=== PATIENT | male | born 1960 | race Caucasian/White ===

== ENCOUNTER 2019-09-26 02:24 | Emergency (ER) | payer MEDICAID, MEDICARE, OTHER ==
[~2019-09-26 02:24] MED LIST: ASPI81TA44 PO; ATEN50TA PO; LISI-603 PO
--- NOTE | 2019-09-26 02:59 | NUR ---
Patient left without being triage or seen by ERMD.
== END 2019-09-26 03:00 | disposition left against medical advice (07) ==
LOC: ER 02:31
DX: Z75.3 Unavailability and inaccessibility of health-care facilities (principal)

== ENCOUNTER 2020-09-25 01:40 | Emergency (ER) | payer MEDICARE, OTHER ==
[~2020-09-25] VITALS: Ht 185.4 cm; Wt 147.4 kg
[~2020-09-25 01:40] MED LIST changes: -LISI-603 PO; +LISI20TA30 PO
--- NOTE | 2020-09-25 01:56 | NUR ---
Dr. Dexter at bedside to do MSE.
[2020-09-25] MEDS ORDERED: HYDR-3980 PO (02:00)
[2020-09-25] MEDS ORDERED: SULF1TAB48 PO (02:00)
[2020-09-25] MEDS ORDERED: HYDROCODONE/APAP 10-325 MG TABLET PO ONE (02:15)
[2020-09-25] MEDS ORDERED: SULFAMETH/TRIMETH 800/160 MG TABLET PO ONE (02:15)
[2020-09-25] MEDS ORDERED: SULFAMETH/TRIMETH 800/160 MG TABLET ONE (02:16)
[2020-09-25] MEDS ORDERED: HYDROCODONE/APAP 10-325 MG TABLET ONE (02:16)
--- NOTE | 2020-09-25 02:39 | NUR ---
Pt. provided crutches and left cast shoe. Crutch and shoe cast instructions provided and pt. ambulates with steady gait.
--- NOTE | 2020-09-25 02:39 | NUR ---
Patient discharged to home in stable condition. Written and verbal after care instructions given. Patient verbalizes understanding of instructions. Stressed follow up or return to ER for worsening s/s. Training on how to use crutches and shoe cast provided. Pt. walks with steady gait. Pt. verbalizes understanding not to drive home. Vss and all belongings taken w/ pt.
[2020-09-25 04:19] VITALS: BP 121/59
== END 2020-09-25 02:39 | disposition home or self-care (01) ==
LOC: ER 01:42
DX: L03.032 Cellulitis of left toe (principal); G89.4 Chronic pain syndrome; M54.5 Low back pain; M79.675 Pain in left toe(s)
CPT/HCPCS: A4663

== ENCOUNTER 2021-01-22 00:49 | Emergency (ER) | payer MEDICARE, OTHER ==
[~2021-01-22] VITALS: Ht 185.4 cm; Wt 147.4 kg
[~2021-01-22 00:49] MED LIST changes: +HYDR-3980 PO; +SULF1TAB48 PO
--- NOTE | 2021-01-22 00:50 | NUR ---
Dr. Dexter at bedside for MSE
[2021-01-22] MEDS ORDERED: KETOROLAC TROMETHAMINE 30 MG INJ IM ONE (01:00)
[2021-01-22] MEDS ORDERED: HYDROCODONE/APAP 10-325 MG TABLET PO ONE (01:00)
[2021-01-22] MEDS ORDERED: HYDR-3980 PO ×2 (01:02→03:08)
[2021-01-22] MEDS ORDERED: KETOROLAC TROMETHAMINE 30 MG INJ ONE (01:12)
[2021-01-22] MEDS ORDERED: HYDROCODONE/APAP 10-325 MG TABLET ONE (01:12)
[2021-01-22] MEDS ORDERED: PENICILLIN G BENZATHINE 2.4 MMU/4 ML DISP.SYRIN IM ONE ×2 (01:30→01:39)
--- NOTE | 2021-01-22 01:49 | NUR ---
Patient discharged to home in stable condition. Written and verbal after care instructions given. Patient verbalizes understanding of instructions. Patient ambulating with steady gait. NAD noted. Stressed follow up or return to ER for worsening s/s.
[2021-01-22 01:52] VITALS: BP 132/80
== END 2021-01-22 02:00 | disposition home or self-care (01) ==
LOC: ER 00:57
DX: G89.29 Other chronic pain (principal); M54.9 Dorsalgia, unspecified; K02.9 Dental caries, unspecified; K05.10 Chronic gingivitis, plaque induced; Z20.822 Contact with and (suspected) exposure to COVID-19; Z79.82 Long term (current) use of aspirin; E66.01 Morbid (severe) obesity due to excess calories; Z68.41 Body mass index [BMI] 40.0-44.9, adult; M19.90 Unspecified osteoarthritis, unspecified site; J45.909 Unspecified asthma, uncomplicated; Z79.899 Other long term (current) drug therapy; F17.200 Nicotine dependence, unspecified, uncomplicated; R03.0 Elevated blood-pressure reading, without diagnosis of hypertension
CPT/HCPCS: 87426; 96372 ×2; 99284; J1885; A4663

== ENCOUNTER 2021-02-16 21:02 | Emergency (ER) | payer MEDICARE, OTHER ==
[~2021-02-16] VITALS: Ht 185.4 cm; Wt 83.9 kg
--- NOTE | 2021-02-16 21:13 | NUR ---
Dr. Dexter at bedside for MSE.
[2021-02-16] MEDS ORDERED: HYDROMORPHONE HCL 2 MG TABLET PO ONE (21:15)
[2021-02-16] MEDS ORDERED: KETOROLAC TROMETHAMINE 30 MG INJ IM ONE (21:15)
[2021-02-16] MEDS ORDERED: ONDANSETRON ODT 4 MG TAB.RAPDIS SL ONE (21:15)
[2021-02-16] MEDS ORDERED: KETOROLAC TROMETHAMINE 30 MG INJ ONE (21:27)
[2021-02-16] MEDS ORDERED: ONDANSETRON ODT 4 MG TAB.RAPDIS ONE (21:27)
[2021-02-16] MEDS ORDERED: HYDROMORPHONE HCL 2 MG TABLET ONE (21:27)
[2021-02-16] MEDS ORDERED: ONDA4TAB5 PO (21:59)
[2021-02-16] MEDS ORDERED: HYDR-3980 PO (21:59)
[2021-02-16] MEDS ORDERED: CYCL10TA9 PO (21:59)
--- NOTE | 2021-02-16 22:10 | NUR ---
Patient discharged to home in stable condition. Written and verbal after care instructions given. Patient verbalizes understanding of instructions. Stressed follow up or return to ER for worsening s/s. Patient out of ER with steady gait, no acute signs of distress, VSS, all belongings taken, provided with copies of lab results, instructed not to drive, will uber home.
[2021-02-16 22:11] VITALS: BP 150/75
== END 2021-02-16 22:11 | disposition home or self-care (01) ==
LOC: ER 21:06
DX: G89.4 Chronic pain syndrome (principal); M54.9 Dorsalgia, unspecified; J02.9 Acute pharyngitis, unspecified; Z20.822 Contact with and (suspected) exposure to COVID-19; K02.9 Dental caries, unspecified; F17.200 Nicotine dependence, unspecified, uncomplicated; M19.90 Unspecified osteoarthritis, unspecified site
CPT/HCPCS: 87426; 96372; 99283; J1885; A4663; Q0162

== ENCOUNTER 2021-03-29 02:30 | Emergency (ER) | payer MEDICARE, OTHER ==
[~2021-03-29] VITALS: Ht 185.4 cm; Wt 151.0 kg
[~2021-03-29 02:30] MED LIST changes: +CYCL10TA9 PO; +ONDA4TAB5 PO
--- NOTE | 2021-03-29 02:40 | NUR ---
pt a/o x3 able to ambulate without assist steady gait. denies sob or c/p able to speak in complete sentences.
[2021-03-29] MEDS ORDERED: PENI500T PO (02:44)
[2021-03-29] MEDS ORDERED: HYDR-3980 PO (02:44)
[2021-03-29] MEDS ORDERED: ONDANSETRON ODT 4 MG TAB.RAPDIS SL ONE (02:45)
[2021-03-29] MEDS ORDERED: HYDROMORPHONE HCL 2 MG TABLET PO ONE (02:45)
[2021-03-29] MEDS ORDERED: KETOROLAC TROMETHAMINE 60 MG INJ IM ONE ×2 (02:45→02:53)
[2021-03-29] MEDS ORDERED: ONDANSETRON ODT 4 MG TAB.RAPDIS ONE (02:53)
--- NOTE | 2021-03-29 02:53 | NUR ---
Patient discharged to home in stable condition. Written and verbal after care instructions given. Patient verbalizes understanding of instructions. Stressed follow up or return to ER for worsening s/s. Patient out of ER with steady gait, no acute signs of distress, VSS, all belongings taken, instructed not to drive, will uber home.
[2021-03-29 02:54] VITALS: BP 142/109
[2021-03-29] MEDS ORDERED: HYDROMORPHONE HCL 2 MG TABLET ONE (02:54)
== END 2021-03-29 02:54 | disposition home or self-care (01) ==
LOC: ER 02:35
DX: G89.4 Chronic pain syndrome (principal); K02.9 Dental caries, unspecified; M54.50 Low back pain, unspecified; J45.909 Unspecified asthma, uncomplicated; F17.210 Nicotine dependence, cigarettes, uncomplicated; E66.01 Morbid (severe) obesity due to excess calories; Z68.41 Body mass index [BMI] 40.0-44.9, adult; Z79.82 Long term (current) use of aspirin; Z79.899 Other long term (current) drug therapy; R03.0 Elevated blood-pressure reading, without diagnosis of hypertension
CPT/HCPCS: 96372; 99283; J1885; A4663; Q0162

== ENCOUNTER 2021-05-04 00:48 | Emergency (ER) | payer MEDICARE, OTHER ==
[~2021-05-04] VITALS: Ht 185.4 cm; Wt 151.0 kg
[~2021-05-04 00:48] MED LIST changes: +PENI500T PO
--- NOTE | 2021-05-04 01:10 | NUR ---
DR. SCHERER AT BEDSIDE, MSE IN PROGRESS.
[2021-05-04] MEDS ORDERED: KETOROLAC TROMETHAMINE 60 MG INJ IM ONE ×2 (01:29→01:30)
[2021-05-04] MEDS ORDERED: HYDR-3980 PO (01:29)
--- NOTE | 2021-05-04 01:36 | NUR ---
Patient discharged to home in stable condition. Written and verbal after care instructions given. Patient verbalizes understanding of instructions. Stressed follow up or return to ER for worsening s/s. Steady gait.
[2021-05-04 01:37] VITALS: BP 154/90
== END 2021-05-04 01:38 | disposition home or self-care (01) ==
LOC: ER 00:50
DX: G89.29 Other chronic pain (principal); M54.50 Low back pain, unspecified; E66.01 Morbid (severe) obesity due to excess calories; Z68.41 Body mass index [BMI] 40.0-44.9, adult; I10 Essential (primary) hypertension; Z79.899 Other long term (current) drug therapy
CPT/HCPCS: 96372; 99283; J1885; A4663

== ENCOUNTER 2021-06-02 02:23 | Emergency (ER) | payer MEDICARE, OTHER ==
[~2021-06-02] VITALS: Ht 185.4 cm; Wt 151.0 kg
--- NOTE | 2021-06-02 02:35 | NUR ---
Dr. Stanley at bedside for MSE.
[2021-06-02] MEDS ORDERED: AMOX875T2 PO (02:46)
[2021-06-02] MEDS: HYDROCODONE/APAP 10-325 MG TABLET PO ONE (02:48)
[2021-06-02] MEDS ORDERED: HYDROCODONE/APAP 10-325 MG TABLET ONE (02:55)
--- NOTE | 2021-06-02 02:55 | NUR ---
Pt provided urine sample, sent to lab.
[2021-06-02] MEDS ORDERED: NITR100C11 PO (02:58)
[2021-06-02] MEDS ORDERED: GABA-536 PO (02:58)
[2021-06-02 03:04] VITALS: BP 158/90
--- NOTE | 2021-06-02 03:04 | NUR ---
Patient discharged to home in stable condition. Written and verbal after care instructions given. Patient verbalizes understanding of instructions. Stressed follow up or return to ER for worsening s/s. Patient out of ER with steady gait, no acute signs of distress, VSS, all belongings taken.
[2021-06-02 03:25] LABS: *BILIRUBIN,URIN NEGATIVE (NEGATIVE); *BLOOD, URINE NEGATIVE (NEGATIVE); *CLARITY,URINE CLEAR (CLEAR); *COLOR,URINE YELLOW (YELLOW); *KETONES,URINE NEGATIVE (NEGATIVE); *UROBILINOGEN,URINE 0.2 E.U./dl (NORMAL); LEUKOCYTE ESTERASE ,URINE NEGATIVE (NEGATIVE); NITRITE, URINE NEGATIVE (NEGATIVE); PH,URINE 6.5 (5.0-8.0); UGLUCOSE NEGATIVE (NEGATIVE)
== END 2021-06-02 03:09 | disposition home or self-care (01) ==
LOC: ER 02:29
DX: K05.10 Chronic gingivitis, plaque induced (principal); G89.29 Other chronic pain; M54.50 Low back pain, unspecified; F17.210 Nicotine dependence, cigarettes, uncomplicated; Z79.82 Long term (current) use of aspirin; Z79.2 Long term (current) use of antibiotics; Z79.899 Other long term (current) drug therapy
CPT/HCPCS: A4663

== ENCOUNTER 2021-07-13 02:00 | Emergency (ER) | payer MEDICARE, OTHER ==
[~2021-07-13] VITALS: Ht 185.4 cm; Wt 151.0 kg
[~2021-07-13 02:00] MED LIST changes: +AMOX875T2 PO; +GABA-536 PO; +NITR100C11 PO
[2021-07-13] MEDS ORDERED: KETOROLAC TROMETHAMINE 30 MG INJ IM ONE (02:15)
[2021-07-13] MEDS ORDERED: SULFAMETH/TRIMETH 800/160 MG TABLET PO ONE (02:15)
[2021-07-13] MEDS ORDERED: HYDROMORPHONE HCL 2 MG TABLET PO ONE (02:15)
--- NOTE | 2021-07-13 02:20 | NUR ---
Patient ambulatory to ED [id number],Dr Dexter bedside.
[2021-07-13] MEDS ORDERED: SULF1TAB48 PO (02:24)
[2021-07-13] MEDS ORDERED: HYDR-3980 PO (02:24)
[2021-07-13] MEDS ORDERED: SULFAMETH/TRIMETH 800/160 MG TABLET ONE (02:34)
[2021-07-13] MEDS ORDERED: HYDROMORPHONE HCL 2 MG TABLET ONE (02:34)
[2021-07-13] MEDS ORDERED: KETOROLAC TROMETHAMINE 30 MG INJ ONE (02:34)
== END 2021-07-13 02:50 | disposition home or self-care (01) ==
LOC: ER 02:02
DX: M54.50 Low back pain, unspecified (principal); G89.4 Chronic pain syndrome; R03.0 Elevated blood-pressure reading, without diagnosis of hypertension; Z79.82 Long term (current) use of aspirin; Z79.899 Other long term (current) drug therapy; F17.210 Nicotine dependence, cigarettes, uncomplicated; Z86.73 Personal history of transient ischemic attack (TIA), and cerebral infarction without residual deficits; I87.2 Venous insufficiency (chronic) (peripheral); M79.672 Pain in left foot
CPT/HCPCS: 96372; 99283; J1885; A4663

== ENCOUNTER 2024-06-07 23:20 | Emergency (ER) | payer MEDICARE, OTHER ==
[~2024-06-07] VITALS: Ht 185.4 cm; Wt 141.1 kg
[2024-06-08] MEDS ORDERED: MUPI15CR TP (01:35)
[2024-06-08] MEDS ORDERED: NABU-140 PO (01:35)
[2024-06-08] MEDS ORDERED: CLIN300C12 PO (01:35)
[2024-06-08] MEDS ORDERED: KETOROLAC TROMETHAMINE 30 MG INJ ONE (01:41)
[2024-06-08] MEDS ORDERED: NEOMY/BACITRA/POLYMYXIN B OINT UD PACKET TP ONE (01:41)
[2024-06-08] MEDS: KETOROLAC TROMETHAMINE 30 MG INJ IM ONE (01:52)
[2024-06-08] MEDS: NEOMY/BACITRA/POLYMYXIN B OINT UD PACKET TP ONE (01:53)
[2024-06-08 01:55] VITALS: BP 150/95; O2SAT 94
== END 2024-06-08 01:56 | disposition home or self-care (01) ==
LOC: ER 06-08 00:14
DX: L03.032 Cellulitis of left toe (principal); G89.29 Other chronic pain; M54.50 Low back pain, unspecified; M79.672 Pain in left foot; I10 Essential (primary) hypertension; F17.200 Nicotine dependence, unspecified, uncomplicated; Z79.82 Long term (current) use of aspirin; Z79.899 Other long term (current) drug therapy; Z60.2 Problems related to living alone
CPT/HCPCS: 99283; 96372; J1885; A4606; A4663

== ENCOUNTER 2024-08-31 22:25 | Emergency (ER) | payer MEDICARE, OTHER ==
[~2024-08-31] VITALS: Ht 185.4 cm; Wt 104.3 kg
[~2024-08-31 22:25] MED LIST changes: +CLIN300C12 PO; +MUPI15CR TP; +NABU-140 PO
[2024-08-31] MEDS ORDERED: MORP15TA PO (23:15)
[2024-08-31] MEDS ORDERED: SULFAMETH/TRIMETH 800/160 MG TABLET ONE (23:16)
[2024-08-31] MEDS ORDERED: HYDROMORPHONE HCL 2 MG TABLET ONE (23:16)
[2024-08-31] MEDS: HYDROMORPHONE HCL 2 MG TABLET PO ONE (23:20)
[2024-08-31] MEDS: SULFAMETH/TRIMETH 800/160 MG TABLET PO ONE (23:20)
[2024-08-31 23:47] VITALS: BP 92/54; O2SAT 95
== END 2024-08-31 23:47 | disposition home or self-care (01) ==
LOC: ER 22:31
DX: G89.4 Chronic pain syndrome (principal); M79.672 Pain in left foot; L97.528 Non-pressure chronic ulcer of other part of left foot with other specified severity; M19.90 Unspecified osteoarthritis, unspecified site; F17.200 Nicotine dependence, unspecified, uncomplicated; Z79.82 Long term (current) use of aspirin; Z79.899 Other long term (current) drug therapy; Z60.2 Problems related to living alone
CPT/HCPCS: A4606; A4663

== ENCOUNTER 2024-09-16 02:46 | Emergency (ER) | payer MEDICARE, OTHER ==
[~2024-09-16] VITALS: Ht 185.4 cm; Wt 149.7 kg
[~2024-09-16 02:46] MED LIST changes: +MORP15TA PO
[2024-09-16 02:58] VITALS: O2SAT 96
[2024-09-16] MEDS ORDERED: SULFAMETH/TRIMETH 800/160 MG TABLET ONE (03:58)
[2024-09-16] MEDS ORDERED: OXYCODONE/APAP 5-325 MG TABLET ONE (03:58)
[2024-09-16] MEDS ORDERED: METFORMIN HCL 500 MG TABLET ONE (03:58)
[2024-09-16] MEDS: SULFAMETH/TRIMETH 800/160 MG TABLET PO ONE (04:01)
[2024-09-16] MEDS: OXYCODONE/APAP 5-325 MG TABLET PO ONE (04:01)
[2024-09-16] MEDS: METFORMIN HCL 500 MG TABLET PO ONE (04:01)
[2024-09-16] MEDS ORDERED: HYDROCODONE/APAP 10-325 MG TABLET ONE (04:04)
[2024-09-16] MEDS: HYDROCODONE/APAP 10-325 MG TABLET PO ONE (04:06)
[2024-09-16 04:07] LABS: BASOPHILS # (AUTO) 0.1 K/UL (0.0-0.2); BASOPHILS % (AUTO) 0.7 % (0.0-2.0); EOSINOPHILS # (AUTO) 0.4 K/uL (0.0-0.7); EOSINOPHILS % (AUTO) 3.5 % (0.0-7.0); HEMATOCRIT 41.4 % (36.7-47.1); HEMOGLOBIN 14.4 g/dL (12.5-16.3); LYMPHOCYTES # (AUTO) 2.6 K/uL (0.8-4.8); LYMPHOCYTES % (AUTO) 25.9 % (20.5-51.5); MEAN CORPUSCULAR HEMOGLOBIN 32.1 uug (23.8-33.4); MEAN CORPUSCULAR HGB CONC 35 g/dL (32.5-36.3); MEAN CORPUSCULAR VOLUME 92.1 fL (73.0-96.2); MONOCYTES # (AUTO) 1.1 K/uL (0.1-1.30); MONOCYTES % (AUTO) 10.4 % (0.0-11.0); NEUTROPHILS # (AUTO) 6.1 K/uL (1.8-8.9); NEUTROPHILS % (AUTO) 59.5 % (38.5-71.5); PLATELET COUNT (AUTO) 217 K/uL (152-348); WHITE BLOOD COUNT (AUTO) 10.2 K/uL (3.6-10.2)
[2024-09-16 04:11] LABS: DIFFERENTIAL COMMENT 1
[2024-09-16 04:13] LABS: CALCIUM 8.3 mg/dL (8.5-10.1); CARBON DIOXIDE 29 mmol/L (21-32); CHLORIDE 96 mmol/L (98-107); CREATININE 1.1 mg/dL (0.6-1.3); GLUCOSE 116 mg/dL (74-106); POTASSIUM 4.8 mmol/L (3.5-5.1); SODIUM SERUM 132 mmol/L (136-145); UREA NITROGEN, BLOOD 17 mg/dL (7-18)
[2024-09-16 04:24] LABS: ACETONE, SERUM NEGATIVE (NEGATIVE)
[2024-09-16] MEDS ORDERED: METF-440 PO (04:26)
== END 2024-09-16 04:40 | disposition home or self-care (01) ==
LOC: ER 03:01
DX: G89.29 Other chronic pain (principal); M79.672 Pain in left foot; L97.529 Non-pressure chronic ulcer of other part of left foot with unspecified severity; E11.621 Type 2 diabetes mellitus with foot ulcer; M19.90 Unspecified osteoarthritis, unspecified site; F17.210 Nicotine dependence, cigarettes, uncomplicated; Z79.82 Long term (current) use of aspirin; Z79.899 Other long term (current) drug therapy; Z60.2 Problems related to living alone
CPT/HCPCS: 36415; 85025; A4606; A4663